=== PATIENT | female | born 1995 | race Hispanic/Latino ===

== ENCOUNTER 2019-11-04 00:16 | Emergency (ER) | payer OTHER ==
[~2019-11-04] VITALS: Ht 170.2 cm; Wt 72.6 kg
[2019-11-04] MEDS ORDERED: CLINDAMYCIN HC150 MG PO (01:04)
--- NOTE | 2019-11-04 01:16 | Emergency Department Note ---
History of Present Illnes History of Present Illness Chief Complaint: General Medicine Complaints History of Present Illness This is a 24 year old female with 3 days of ingrown toenail to rt big toe. Similar symptoms in past that have always been self treated. Not able to cut nail back herself this time. 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 Any updates have been documented here. Past Medical History Recent Fever: No Clinical Suspicion of Infectio: No New/Unexplained Change in Ment: No Past Medical History: None Past Surgical History: None Social History Smoking Cessation: Never Smoker Counseling Performed: No Alcohol Use: None Any Illegal Drug Use: No Physically hurt or threatened: No Other Any Pre-Existing Lines (PICC,: No Review of Systems Review of Systems Constitutional: Denies diaphoresis, Denies fever, Denies malaise EENTM: Reports no symptoms Cardiovascular: Reports no symptoms Respiratory: Reports no symptoms Gastrointestinal: Reports no symptoms Musculoskeletal: Reports as per HPI Integumentary: Reports as per HPI Neurological: Reports no symptoms Psychological: Reports no symptoms Endocrine: Reports no symptoms Hematological/Lymphatic: Denies blood clots, Denies easy bleeding Physical Exam Related Data Allergies: Coded Allergies: No Known Allergies (Unverified , 11/04/19) Triage Vital Signs Vital Signs Date Time Temp Pulse Resp B/P (MAP) Pulse Ox O2 Delivery O2 Flow Rate FiO2 11/04/19 00:31 98.5 95 18 164/92 98 Room Air Physical Exam CONSTITUTIONAL HENT HENT: Present normocephalic, Present atraumatic HENT L/R: Present left ext ear normal, Present right ext ear normal EYES Eyes: Denies left eye discharge, Denies right eye discharge NECK Neck: Present ROM normal, Present supple PULMONARY Pulmonary: Present effort normal, Present breath sounds normal; Absent respiratory distress CARDIOVASCULAR Cardiovascular: Present regular rhythm, Present heart sounds normal, Present intact distal pulses, Present capillary refill normal (X 10 toes) GASTROINTESTINAL Abdominal: Present soft, Present nontender GENITOURINARY SKIN MUSCULOSKELETAL Musculoskeletal: Present tenderness (rt great toe along lateral aspect of toenail. lateral aspect of nail overlapped by lateral nail fold.), Present swelling (rt great toe along lateral aspect of toenail. No fluctuance, no discharge.); Absent deformity NEUROLOGICAL Neurological: Present alert, Present oriented x 3, Present no gross motor or sensory deficits (good 2 point discrimination and equal to associated toes on each foot.) PSYCHOLOGICAL Psychological: Present mood/affect normal, Present judgement normal Assessment & Plan Medical Decision Making MDM paronychia, felon, abscess Assessment & Plan Final Impression: (1) Ingrowing toenail of right foot Depart Disposition: HOME, SELF-CARE (Patient made aware of need for prompt followup with patternmaker helper and given strict return precautions.) Last Vital Signs Date Time Temp Pulse Resp B/P (MAP) Pulse Ox O2 Delivery O2 Flow Rate FiO2 11/04/19 00:31 98.5 95 18 164/92 98 Room Air Home Meds Active Scripts Clindamycin Hcl (CLINDAMYCIN HCL) 150 Mg Capsule, 3 TAB PO TID for 10 Days, #90 Prov:BROOKLYN WALSH MD 11/04/19 BROOKLYN WALSH MD Nov 04, 2019 00:56
== END 2019-11-04 01:17 | disposition home or self-care (01) ==
LOC: FSED 00:45
DX: L60.0 Ingrowing nail (principal)
CPT/HCPCS: 99282